=== PATIENT | male | born 1990 | race Caucasian/White ===

== ENCOUNTER 2020-06-22 14:24 | Outpatient (CLI) | payer SELFPAY | END 2020-06-22 14:25 | disposition EMS.NT | LOC: EMS 14:24 | PROVIDERS: ATTEND Surgery | DX: R07.89 Other chest pain (principal); S80.212A Abrasion, left knee, initial encounter; S80.211A Abrasion, right knee, initial encounter; V89.2XXA Person injured in unspecified motor-vehicle accident, traffic, initial encounter; Y93.89 Activity, other specified; Y92.410 Unspecified street and highway as the place of occurrence of the external cause ==